=== PATIENT | female | born 1955 | race Caucasian/White ===

== ENCOUNTER 2021-08-11 10:54 | Day surgery (SDC) | payer MEDICARE, OTHER ==
[2021-08-06 12:16] VITALS: BMI 33.8
[2021-08-11] MEDS ORDERED: SODIUM CHLORIDE 0.9% 500 ML 500 ML IV ONE (11:17)
[2021-08-11 11:23] LABS: Glucose,Whole Blood 239 mg/dL (75-99)
[2021-08-11] MEDS ORDERED: INSULIN ASPART (NovoLOG) 100 UNIT/ML VIAL SQ ONE (11:27)
[2021-08-11 11:33] VITALS: TEMP 98.2
[2021-08-11] MEDS ORDERED: BENZOCAINE SPRAY 1 CAN MUCOUS MEM ONE (12:14)
[2021-08-11] MEDS ORDERED: MIDAZOLAM 2 MG/2 ML VIAL IV ONE (12:15)
[2021-08-11] MEDS: fentaNYL (PF) 50 MCG/ML 2 ML AMP IV ONE ×2 (12:15→12:18)
[2021-08-11] MEDS: MIDAZOLAM 2 MG/2 ML VIAL IV ONE ×2 (12:18→12:20)
--- NOTE | 2021-08-11 13:06 | P.TEE ---
Description of Procedure(s): Procedure performed: Transesophageal Echocardiogram with color flow doppler, pulsed wave doppler and continuous wave doppler Moderate conscious sedation: Moderate conscious sedation was supplied with direct supervision of myself using Versed and Fentanyl. Complications: none Indications: Cryptogenic stroke History: Patient is a pleasant 65 year old female with history of HTN, HLD, DM2, and stroke. She has been seen by neurology with findings of multiple lacunar strokes and therefore recommendation was for UMANG to rule out cardiac source of emboli. PROCEDURE: After the risks, benefits and alternatives of the above mentioned procedure was explained in detail with the patient, informed consent was obtained. Patient was brought to the lab in a fasting state. Patient was given sedation by anesthesia. The throat was sprayed with Hurricane to anesthetize the throat. A lubricated Omni probe was then introduced into the esophagus and stomach and multiple views were obtained. 2D echo with color flow doppler, pulsed wave doppler and continuous wave doppler was utilized. Agitated saline bubbles were injected to assess for any intra-atrial shunt. The probe was then removed. Patient tolerated the procedure well. Patient was transferred to the post procedure area in stable and satisfactory condition. FINDINGS: 1. The aortic valve is tricuspid and functioning normally. There is mild to moderate aortic sclerosis however no significant aortic stenosis. 2. The mitral valve appears be normal with mild mitral regurgitation. 3. Tricuspid valve is normal with trace tricuspid regurgitation. 4. There is a PFO present with bidirectional shunt. 5. Left atrial appendage does not have any thrombus. 6. Left ventricular size appears normal with normal LV function and EF 55- 60%.
[2021-08-11 13:13] VITALS: RESP 16
[2021-08-11 13:29] VITALS: BP 147/67; PULSE 77
== END 2021-08-11 14:25 | disposition home or self-care (01) ==
LOC: CATHCVL 10:54
PROVIDERS: ATTEND Internal Medicine
DX: I63.9 Cerebral infarction, unspecified (principal); I10 Essential (primary) hypertension; E78.5 Hyperlipidemia, unspecified; E11.9 Type 2 diabetes mellitus without complications; Z86.73 Personal history of transient ischemic attack (TIA), and cerebral infarction without residual deficits; Z20.822 Contact with and (suspected) exposure to COVID-19
CPT/HCPCS: 93312; 93320; 93325; 87635; J2250; J3010